=== PATIENT | female | born 1975 | race Caucasian/White ===

== ENCOUNTER → 2025-09-18 11:11 | Outpatient (REF) | payer OTHER, SELFPAY | LOC: HWRCS 11:11 | PROVIDERS: ATTENDING PHYSICIAN Internal Medicine Cardiovascular Disease; FAMILY PHYSICIAN Family Medicine | DX: O90.3 Peripartum cardiomyopathy (principal); E78.2 Mixed hyperlipidemia | CPT/HCPCS: 93306 ==